=== PATIENT | male | born 1990 | race Caucasian/White ===

== ENCOUNTER 2020-06-03 23:07 | Emergency (ER) | payer OTHER ==
[~2020-06-03] VITALS: Ht 177.8 cm; Wt 74.8 kg
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
--- NOTE | 2020-06-03 23:32 | NUR ---
REPORT CALLED TO [facility] [employer] PROGRAMMER #[id number]
[2020-06-03] MEDS ORDERED: IBUPROFEN 600 MG TABLET PO ONE (23:42)
[2020-06-04] MEDS ORDERED: IBUPROFEN 600 MG TABLET PO ONE
--- NOTE | 2020-06-04 00:03 | NUR ---
EMT AT BEDSIDE FOR SPLINT
[2020-06-04] MEDS ORDERED: KETOROLAC TROMETHAMINE INJ 60 MG/2 ML VIAL IM ONE ×2 (00:05→00:30)
[2020-06-04 00:11] VITALS: BP 121/71
--- NOTE | 2020-06-04 00:11 | NUR ---
Patient discharged to home in stable condition. Written and verbal after care instructions given. Patient verbalizes understanding of instruction and RX. Pt ambualted with steady gait, vss.
== END 2020-06-04 00:11 | disposition home or self-care (01) ==
LOC: ER 23:13
DX: S62.366A Nondisplaced fracture of neck of fifth metacarpal bone, right hand, initial encounter for closed fracture (principal); Y08.89XA Assault by other specified means, initial encounter; Y93.89 Activity, other specified; Y92.89 Other specified places as the place of occurrence of the external cause; Y99.8 Other external cause status
CPT/HCPCS: 29125; 73130; 96372; 99283; J1885

== ENCOUNTER 2020-10-07 23:43 | Emergency (ER) | payer OTHER ==
[~2020-10-07] VITALS: Ht 177.8 cm; Wt 77.1 kg
[2020-10-08 00:01] VITALS: BP 139/76
[2020-10-08] MEDS ORDERED: LORAZEPAM 1 MG TABLET PO ONE (00:30)
[2020-10-08] MEDS ORDERED: CARBAMAZEPINE 200 MG TABLET PO ONE (00:30)
[2020-10-08] MEDS ORDERED: LORAZEPAM 1 MG TABLET ONE (00:32)
[2020-10-08] MEDS ORDERED: CARBAMAZEPINE 200 MG TABLET ONE (00:33)
== END 2020-10-08 00:47 | disposition home or self-care (01) ==
LOC: ER 23:57
DX: F41.9 Anxiety disorder, unspecified (principal); F11.10 Opioid abuse, uncomplicated; G43.909 Migraine, unspecified, not intractable, without status migrainosus; F17.210 Nicotine dependence, cigarettes, uncomplicated